=== PATIENT | male | born 1995 | race Two or more races ===

== ENCOUNTER 2020-06-26 21:33 | Emergency (ER) | payer MEDICAID, OTHER ==
[~2020-06-26] VITALS: Ht 170.2 cm; Wt 58.5 kg
[2020-06-26 22:00] VITALS: BP 153/73
--- NOTE | 2020-06-26 23:37 | NUR ---
Patient discharged to home in stable condition. Written and verbal after care instructions given. Patient verbalizes understanding of instruction.pt. ambulatory with a steady gait
== END 2020-06-26 23:37 | disposition home or self-care (01) ==
LOC: ER 21:33
DX: S20.212A Contusion of left front wall of thorax, initial encounter (principal); Z79.899 Other long term (current) drug therapy; W18.39XA Other fall on same level, initial encounter; Y93.67 Activity, basketball; Y92.89 Other specified places as the place of occurrence of the external cause; Y99.8 Other external cause status
CPT/HCPCS: 71100-TC